=== PATIENT | female | born 1995 | race African-American/Black ===

== ENCOUNTER 2017-08-05 08:51 | Emergency (ER) | payer SELFPAY ==
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
[2017-08-05 11:13] VITALS: BP 129/65
[2017-08-05 11:58] LABS: CHLAM PCR NOT DETECTED (NOT DETECT)
== END 2017-08-05 11:13 | disposition home or self-care (01) ==
LOC: ER 08:51
DX: N76.0 Acute vaginitis (principal); B96.89 Other specified bacterial agents as the cause of diseases classified elsewhere; J06.9 Acute upper respiratory infection, unspecified; B97.89 Other viral agents as the cause of diseases classified elsewhere; J02.9 Acute pharyngitis, unspecified; R51 Headache; R11.0 Nausea; R05 Cough
CPT/HCPCS: 87070; 87210; 87491; 87591; 87880; 99283

== ENCOUNTER 2017-08-11 23:05 | Emergency (ER) | payer SELFPAY ==
[2017-08-12] MEDS ORDERED: ACETAMINOPHEN 325 MG TABLET PO ONE (00:47)
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
[2017-08-12 01:44] VITALS: BP 121/64
== END 2017-08-12 01:43 | disposition home or self-care (01) ==
LOC: ER 23:05
DX: S00.83XA Contusion of other part of head, initial encounter (principal); Y04.2XXA Assault by strike against or bumped into by another person, initial encounter
CPT/HCPCS: 81025; 99284

== ENCOUNTER 2017-10-12 14:55 | Emergency (ER) | payer SELFPAY ==
--- NOTE | 2017-10-12 16:16 | ER Document Report ---
ED Oral Problem - General Chief Complaint: Toothache Stated Complaint: TOOTHACHE Time Seen by Provider: 10/12/17 16:05 Mode of Arrival: Ambulatory Information source: Patient TRAVEL OUTSIDE OF THE [place] IN LAST 30 DAYS: No - HPI Patient complains to provider of: Toothache Onset: Other - pt. states she has had pain in L upper molar for the past several days. - Related Data Allergies/Adverse Reactions: No Known Allergies Allergy (Verified 10/12/17 15:35) Past Medical History - Social History Smoking Status: Never Smoker Cigarette use (# per day): No Chew tobacco use (# tins/day): No Smoking Education Provided: No Family History: Reviewed & Not Pertinent Neurological Medical History: Reports: Hx Migraine Renal/ Medical History: Denies: Hx Peritoneal Dialysis Psychiatric Medical History: Reports: Hx Bipolar Disorder, Hx Depression - Immunizations Immunizations up to date: Yes Hx Diphtheria, Pertussis, Tetanus Vaccination: No Review of Systems - Review of Systems Constitutional: No symptoms reported EENT: See HPI, Dental problem Cardiovascular: No symptoms reported Respiratory: No symptoms reported Gastrointestinal: No symptoms reported Musculoskeletal: No symptoms reported Skin: No symptoms reported -: Yes All other systems reviewed and negative Physical Exam - Vital signs Vitals: Temp Pulse Resp BP Pulse Ox 99.4 F 91 16 131/85 H 100 10/12/17 15:33 10/12/17 15:33 10/12/17 15:33 10/12/17 15:33 10/12/17 15:33 - General General appearance: Appears well In distress: None - HEENT Mouth/Lips: Other - there is a large cavity of the L upper molar which is tender to percussion Course - Vital Signs Vital signs: Temp Pulse Resp BP Pulse Ox 99.4 F 91 16 131/85 H 100 10/12/17 15:33 10/12/17 15:33 10/12/17 15:33 10/12/17 15:33 10/12/17 15:33 Discharge - Discharge Clinical Impression: Dentalgia Condition: Stable Instructions: [facility], Penicillin V K ([facility]), Toothache ([facility]) Additional Instructions: rest, take meds as prescribed, return if worse Prescriptions: Amoxicillin Trihydrate [Amoxil 500 mg Capsule] 500 mg PO TID #30 capsule Etodolac [Lodine] 400 mg PO BID #20 tablet Referrals: VERONICA MORTON MD [ACTIVE STAFF] - Follow up as needed
[2017-10-12 18:12] VITALS: BP 119/72
== END 2017-10-12 17:30 | disposition home or self-care (01) ==
LOC: ER 14:55
DX: K08.89 Other specified disorders of teeth and supporting structures (principal)
CPT/HCPCS: 99282

== ENCOUNTER → 2017-11-03 | Outpatient (CLI) | payer SELFPAY ==
--- NOTE | 2017-11-03 15:26 | RADIOLOGY REPORT (SQ) ---
EXAM DESCRIPTION: U/S [id number] TRNABD 1GES W/ODOP COMPLETED DATE/TIME: 11/03/2017 3:14 pm REASON FOR STUDY: ENCOUNTER FOR SUPERVISION OF NORMAL FIRST , FIRST TRIMESTER Z34.01 ENCNT R FOR SUPRVSN OF NORMAL FIRST PREG, FIRST TRIMES COMPARISON: None. TECHNIQUE: Transabdominal static and realtime grayscale images acquired of the pelvis. Additional se lected spectral and color Doppler images recorded. All images stored on PACs. bHCG: Not applicable. LIMITATIONS: None. FINDINGS: FETUS: Living intrauterine . EGA: 8 week 4 day. OREN: 06/11/2018. FHR: 171 beats per minute. SUBCHORIONIC BLEED: No. SIZE OF BLEED: Not applicable. UTERUS: No masses. No anomalies. RIGHT ADNEXA: Normal ovary with normal vascular flow. No adnexal free fluid. No adnexal masses. LEFT ADNEXA: Ovary not identified. No adnexal free fluid. No adnexal masses. FREE FLUID: None. OTHER: No other significant finding. IMPRESSION: LIVING INTRAUTERINE . EGA 8 WEEK 4 DAY. Trimester of : First - 0 to 13 weeks. TECHNICAL DOCUMENTATION: JOB ID: [id number] [employer]- All Rights Reserved
== END ==
LOC: RAD 14:35
PROVIDERS: ATTEND Nurse Practitioner Women's Health
DX: Z34.01 Encounter for supervision of normal first pregnancy, first trimester (principal)
CPT/HCPCS: 76801

== ENCOUNTER 2017-11-08 19:59 | Emergency (ER) | payer MEDICAID ==
--- NOTE | 2017-11-08 21:17 | ER Document Report ---
ED General - General Chief Complaint: Headache <24 hrs old Stated Complaint: DIZZINESS/NAUSEA Time Seen by Provider: 11/08/17 20:57 Mode of Arrival: Ambulatory Information source: Patient Notes: 22 years old female presents today with headaches generalized body aches nausea with the 9 week . No fever chills or other constitutional symptoms. Denies any nausea vomiting diarrhea. Dysuria frequency urgency. TRAVEL OUTSIDE OF THE [place] IN LAST 30 DAYS: No - Related Data Allergies/Adverse Reactions: No Known Allergies Allergy (Verified 11/08/17 20:06) Past Medical History - Social History Smoking Status: Smoker,Current Status Unk Family History: Reviewed & Not Pertinent Neurological Medical History: Reports: Hx Migraine Renal/ Medical History: Denies: Hx Peritoneal Dialysis Psychiatric Medical History: Reports: Hx Bipolar Disorder, Hx Depression - Immunizations Immunizations up to date: Yes Hx Diphtheria, Pertussis, Tetanus Vaccination: No Review of Systems - Review of Systems Notes: REVIEW OF SYSTEMS: CONSTITUTIONAL : Denies fever, chills, or sweats. Denies recent illness. EENT: Denies eye, ear, throat, or mouth pain or symptoms. Denies nasal or sinus congestion or discharge. Denies throat, tongue, or mouth swelling or difficulty swallowing. CARDIOVASCULAR: Denies chest pain. Denies palpitations or racing or irregular heart beat. Denies ankle edema. RESPIRATORY: Denies cough, cold, or chest congestion. Denies shortness of breath, difficulty breathing, or wheezing. GASTROINTESTINAL: Denies abdominal pain or distention. Denies nausea, vomiting , or diarrhea. Denies blood in vomitus, stools, or per rectum. Denies black, tarry stools. Denies constipation. GENITOURINARY: Denies difficulty urinating, painful urination, burning, frequency, blood in urine, or discharge. FEMALE GENITOURINARY: Denies vaginal bleeding, heavy or abnormal periods, irregular periods. Denies vaginal discharge or odor. MUSCULOSKELETAL: Denies back or neck pain or stiffness. Denies joint pain or swelling. SKIN: Denies rash, lesions or sores. HEMATOLOGIC : Denies easy bruising or bleeding. LYMPHATIC: Denies swollen, enlarged glands. NEUROLOGICAL: Denies confusion or altered mental status. Denies passing out or loss of consciousness. Denies dizziness or lightheadedness. Denies headache. Denies weakness or paralysis or loss of use of either side. Denies problems with gait or speech. Denies sensory loss, numbness, or tingling. Denies seizures. PSYCHIATRIC: Denies anxiety or stress. Denies depression, suicidal ideation, or homicidal ideation. ALL OTHER SYSTEMS REVIEWED AND NEGATIVE. PHYSICAL EXAMINATION: GENERAL: Well-appearing, well-nourished and in no acute distress. HEAD: Atraumatic, normocephalic. EYES: Pupils equal round and reactive to light, extraocular movements intact, conjunctiva are normal. ENT: Nares patent, oropharynx clear without exudates. Moist mucous membranes. NECK: Normal range of motion, supple without lymphadenopathy LUNGS: Breath sounds clear to auscultation bilaterally and equal. No wheezes rales or rhonchi. HEART: Regular rate and rhythm without murmurs ABDOMEN: Soft, nontender, nondistended abdomen. No guarding, no rebound. No masses appreciated. Female : deferred Musculoskeletal: Normal range of motion, no pitting or edema. No cyanosis. NEUROLOGICAL: Cranial nerves grossly intact. Normal speech, normal gait. Normal sensory, motor exams PSYCH: Normal mood, normal affect. SKIN: Warm, Dry, normal turgor, no rashes or lesions noted. Dictation was performed using [employer] voice recognition software Physical Exam - Vital signs Vitals: Temp Pulse Resp BP Pulse Ox 98.9 F 75 18 126/80 H 100 11/08/17 22:29 11/08/17 22:29 11/08/17 22:29 11/08/17 22:29 11/08/17 22:29 Course - Re-evaluation Re-evalutation: 11/08/17 22:20 Patient was reevaluated, still having a headache, since he is prepped and we are not allowed to have anything more than Tylenol at this point. She has been asked to drink lots of fluids and follow-up with OB - Vital Signs Vital signs: Temp Pulse Resp BP Pulse Ox 98.9 F 75 18 126/80 H 100 11/08/17 22:29 11/08/17 22:29 11/08/17 22:29 11/08/17 22:29 11/08/17 22:29 - Laboratory Result Diagrams: 11/08/17 21:25 Discharge - Discharge Clinical Impression: Headache Qualifiers: Headache type: tension-type Headache chronicity pattern: episodic headache Intractability: not intractable Qualified Code(s): G44.219 - Episodic tension- type headache, not intractable Qualifiers: Weeks of gestation: 9 weeks Qualified Code(s): Z3A.09 - 9 weeks gestation of Condition: Fair Disposition: HOME, SELF-CARE Instructions: Headache ([facility]), ([facility]), Viral Syndrome ([facility])
[2017-11-08 21:38] LABS: ABSOLUTE EOSINOPHILS # (AUTO) 0.1 10^3/uL (0.0-0.6); ABSOLUTE LYMPHOCYTES (AUTO) 2.6 10^3/uL (0.5-4.7); ABSOLUTE MONOCYTES (AUTO) 0.4 10^3/uL (0.1-1.4); ABSOLUTE NEUT (AUTO) 5.7 10^3/uL (1.7-8.2); BASOPHILS % (AUTO) 0.5 % (0-2); EOSINOPHILS % (AUTO) 1.2 % (0-6); HEMATOCRIT 37.2 % (36.0-47.0); HEMOGLOBIN 12.7 g/dL (12.0-15.5); HGB HCT DIFFERENCE 0.9; LYMPHOCYTES % (AUTO) 29.5 % (13-45); MEAN CORPUSCULAR HEMOGLOBIN 28.1 pg (27.0-33.4); MEAN CORPUSCULAR HGB CONC 34.1 g/dL (32.0-36.0); MEAN CORPUSCULAR VOLUME 82 fl (80-97); MONOCYTES % (AUTO) 4.7 % (3-13); RED BLOOD COUNT 4.52 10^6/uL (3.72-5.28); RED CELL DISTRIBUTION WIDTH 13.7 % (11.5-14.0); SEGMENTED NEUTROPHILS % (AUTO) 64.1 % (42-78); WHITE BLOOD COUNT 8.9 10^3/uL (4.0-10.5)
[2017-11-08 22:33] VITALS: BP 126/80
== END 2017-11-08 22:30 | disposition home or self-care (01) ==
LOC: ER 19:59
DX: G44.219 Episodic tension-type headache, not intractable (principal); O26.891 Other specified pregnancy related conditions, first trimester; R11.0 Nausea; R42 Dizziness and giddiness; M79.1 Myalgia; Z3A.09 9 weeks gestation of pregnancy; F17.200 Nicotine dependence, unspecified, uncomplicated
CPT/HCPCS: 36415; 85025; 87804; 99284

== ENCOUNTER 2017-12-02 11:27 | Emergency (ER) | payer MEDICAID ==
[2017-12-02] MEDS ORDERED: ACETAMINOPHEN 325 MG TABLET PO ONE (13:06)
--- NOTE | 2017-12-02 13:07 | ER Document Report ---
ED General - General Chief Complaint: Nausea/Vomiting Stated Complaint: NAUSEA SORE THROAT BODY ACHES Time Seen by Provider: 12/02/17 12:23 Notes: Patient is a 22-year-old female who is 12.5 week female who presents emergency department with chief complaint of right-sided headache with cough and sore throat for the past 2 days. Patient states that she has been taking Tylenol and nothing else for her symptoms. She denies any fevers or chills admits to nausea without vomiting denies any dysuria, pyuria or urinary frequency. Following with the health department for [facility] care, has had an ultrasound confirming her . Denies any pelvic pain, back pain, edema. TRAVEL OUTSIDE OF THE [place] IN LAST 30 DAYS: No - Related Data Allergies/Adverse Reactions: No Known Allergies Allergy (Verified 12/02/17 12:49) Past Medical History - Social History Smoking Status: Never Smoker Chew tobacco use (# tins/day): No Frequency of alcohol use: None Drug Abuse: None Family History: Reviewed & Not Pertinent Patient has suicidal ideation: No Patient has homicidal ideation: No Neurological Medical History: Reports: Hx Migraine Renal/ Medical History: Denies: Hx Peritoneal Dialysis Psychiatric Medical History: Reports: Hx Bipolar Disorder, Hx Depression - Immunizations Immunizations up to date: Yes Hx Diphtheria, Pertussis, Tetanus Vaccination: No Review of Systems - Review of Systems Constitutional: No symptoms reported EENT: See HPI Cardiovascular: No symptoms reported Respiratory: See HPI Gastrointestinal: See HPI Musculoskeletal: No symptoms reported -: Yes All other systems reviewed and negative Physical Exam - Vital signs Vitals: Temp Pulse Resp BP Pulse Ox 99.5 F 88 16 133/81 H 100 12/02/17 11:31 12/02/17 11:31 12/02/17 11:31 12/02/17 11:31 12/02/17 11:31 - Notes Notes: PHYSICAL EXAM GENERAL: Alert, interacts well. HEENT: NCAT, pale conjunctiva, extraocular movements intact, pupils PERRL. external ear normal, no evidence of external auditory canal tenderness, blood/ drainage, cerumen impaction, TM intact without evidence of effusion, bulging, injection, MMM, Uvula midline. Airway patent. No evidence of tonsillar enlargement, peritonsillar abscess, retropharyngeal abscess. LUNGS: Clear to auscultation bilaterally, no wheezes, rales, or rhonchi. No respiratory distress. HEART: Regular rate and rhythm. No murmurs, gallops, or rubs. ABDOMEN: Soft, nondistended, nontender. No guarding, rebound, or rigidity.. Bowel sounds present in all 4 quadrants. EXTREMITIES: Moves all 4 extremities spontaneously. No edema, radial and dorsalis pedis pulses 2/4 bilaterally. No cyanosis. NEUROLOGICAL: Alert and oriented x4. Normal speech. PSYCH: Normal affect, normal mood. SKIN: Warm, dry, normal turgor. No rashes or lesions noted. Course - Re-evaluation Re-evalutation: 12/02/17 14:18 22-year-old female is hemodynamically stable, no acute distress afebrile. Presentation is most consistent with a viral upper respiratory infection. Patient is overall well appearance, vitals within normal limits, well-hydrated. Urinalysis without evidence of dehydration, UTI. Patient denies any headache, neck pain, and has no evidence of meningismus on examination. Lungs are clear bilaterally. No evidence of respiratory distress. Based on clinical exam and history, I do not suspect an acute pneumonia, meningitis, strep pharyngitis, or an acute encephalitis. No laboratory or imaging testing is indicated at this time. Will discharge patient with return precautions and followup recommendations. They are in agreement this plan have verbalized understanding return precautions. - Vital Signs Vital signs: Temp Pulse Resp BP Pulse Ox 99.5 F 88 16 133/81 H 100 12/02/17 11:31 12/02/17 11:31 12/02/17 11:31 12/02/17 11:31 12/02/17 11:31 - Laboratory Laboratory results interpreted by me: 12/02/17 12:56 Urine Urobilinogen 2.0 H Discharge - Discharge Clinical Impression: URI (upper respiratory infection) Qualifiers: URI type: unspecified viral URI Qualified Code(s): J06.9 - Acute upper respiratory infection, unspecified Condition: Good Disposition: HOME, SELF-CARE Additional Instructions: Your presentation today is consistent with an upper respiratory infection. Please see the attached list for medications that are safe to take in . Please follow-up with the health department as scheduled for your routine [employer] care. Please be sure to take your prenatals as directed. Prescriptions: Pnv No.121/Iron/Folic Acid [ Multivitamin Tablet] 1 each PO DAILY #30 tablet [facility]NO [facility]AL MD] - Follow up as needed
[2017-12-02 13:28] LABS: APPEARANCE,URINE SLIGHTLY-CLOUDY; BILIRUBIN,URINE NEGATIVE (NEGATIVE); COLOR,URINE YELLOW; GLUCOSE, URINE NEGATIVE (NEGATIVE); KETONES,URINE NEGATIVE (NEGATIVE); LEUKOCYTE ESTERASE,URINE NEGATIVE (NEGATIVE); NITRITE,URINE NEGATIVE (NEGATIVE); PROTEIN,URINE NEGATIVE (NEGATIVE); URINE SPECIFIC GRAVITY 1.026
[2017-12-02 13:40] LABS: A TYPE INFLUENZA AG NEGATIVE (NEGATIVE); B INFLUENZA AG NEGATIVE (NEGATIVE)
[2017-12-02 14:41] VITALS: BP 121/70
== END 2017-12-02 14:40 | disposition home or self-care (01) ==
LOC: ER 11:27
DX: O99.511 Diseases of the respiratory system complicating pregnancy, first trimester (principal); J06.9 Acute upper respiratory infection, unspecified; B97.89 Other viral agents as the cause of diseases classified elsewhere; J02.9 Acute pharyngitis, unspecified; O26.891 Other specified pregnancy related conditions, first trimester; R51 Headache; R05 Cough; R11.0 Nausea; Z3A.12 12 weeks gestation of pregnancy
CPT/HCPCS: 99283; 81001; 87804; J3490

== ENCOUNTER 2018-06-09 11:52 | Outpatient (CLI) | payer MEDICAID ==
--- NOTE | 2018-06-09 12:41 | Non Stress Test Report ---
Non Stress Test Datetime Report Generated by CPN: 06/09/2018 12:41 INDICATION Indication for Study: Ordered by Provider; Other Indication for Study (NST) Other: repeat NST sent from office MONITORING Monitor Explained: Monitor Explained; Test Explained; Patient Verbalized Understanding Time on Monitor: 06/09/2018 12:04 Time off Monitor: 06/09/2018 12:38 NST Duration: 34 NST INTERVENTIONS NST Interventions: PO Hydration; Reposition Patient Physician Notified NST: C Alvarado CNM BABY A: [id number] BABY A Movement : Present Contraction Frequency : 0 FHR Baseline : 130 Accelerations : 15X15 Decelerations : None Variability : Moderate 6-25bpm NST Review: Meets Criteria for Reactive NST NST Review and Verified By : D Bellavance RN NST Results: Reactive NST REPORT Report Trigger: Send Report
== END 2018-06-09 12:53 | disposition home or self-care (01) ==
LOC: LC 11:52
PROVIDERS: ATTEND Obstetrics & Gynecology Gynecology
PROC: 4A1HXCZ Monitoring of Products of Conception, Cardiac Rate, External Approach (ICD-10-PCS; principal; 2018-06-09)
DX: O36.8130 Decreased fetal movements, third trimester, not applicable or unspecified (principal); O48.0 Post-term pregnancy; Z3A.40 40 weeks gestation of pregnancy
CPT/HCPCS: 59025

== ENCOUNTER 2018-06-13 14:26 | Inpatient (IN) | payer MEDICAID ==
[2018-06-13 15:16] LABS: APPEARANCE,URINE SLIGHTLY-CLOUDY; BILIRUBIN,URINE NEGATIVE (NEGATIVE); COLOR,URINE YELLOW; GLUCOSE, URINE NEGATIVE (NEGATIVE); KETONES,URINE TRACE mg/dL (NEGATIVE); LEUKOCYTE ESTERASE,URINE SMALL (NEGATIVE); NITRITE,URINE NEGATIVE (NEGATIVE); PROTEIN,URINE NEGATIVE (NEGATIVE); URINE SPECIFIC GRAVITY 1.021
[2018-06-13 15:34] LABS: URINE AMPHETAMINES SCREEN NEGATIVE; URINE BARBITURATES SCREEN NEGATIVE; URINE BENZODIAZEPINES SCREEN NEGATIVE; URINE COCAINE SCREEN NEGATIVE; URINE MARIJUANA (THC) SCREEN NEGATIVE; URINE METHADONE SCREEN NEGATIVE; URINE PHENCYCLIDINE SCREEN NEGATIVE
[2018-06-13] MEDS ORDERED: RINGERS SOLUTION,LACTATED 300 ML IV ONE (15:36)
[2018-06-13] MEDS ORDERED: DINOPROSTONE 10 MG VAGINAL INSERT.SR PV PRN (15:36)
[2018-06-13 16:08] LABS: ABSOLUTE BASOPHILS # (AUTO) 0.1 10^3/uL (0.0-0.2); ABSOLUTE LYMPHOCYTES (AUTO) 1.8 10^3/uL (0.5-4.7); ABSOLUTE MONOCYTES (AUTO) 0.4 10^3/uL (0.1-1.4); ABSOLUTE NEUT (AUTO) 4.9 10^3/uL (1.7-8.2); BASOPHILS % (AUTO) 0.8 % (0-2); EOSINOPHILS % (AUTO) 0.3 % (0-6); HEMOGLOBIN 12.1 g/dL (12.0-15.5); LYMPHOCYTES % (AUTO) 25.4 % (13-45); MEAN CORPUSCULAR HEMOGLOBIN 27.8 pg (27.0-33.4); MEAN CORPUSCULAR HGB CONC 33.6 g/dL (32.0-36.0); MEAN CORPUSCULAR VOLUME 83 fl (80-97); MONOCYTES % (AUTO) 5.5 % (3-13); PLATELET COUNT 172 10^3/uL (150-450); RED BLOOD COUNT 4.35 10^6/uL (3.72-5.28); RED CELL DISTRIBUTION WIDTH 15.6 % (11.5-14.0); TOTAL CELLS COUNTED % (AUTO) 100 %; WHITE BLOOD COUNT 7.1 10^3/uL (4.0-10.5)
[2018-06-13] MEDS: RINGERS SOLUTION,LACTATED 1,000 ML IV PRN ×2 (16:15→18:43)
--- NOTE | 2018-06-13 18:10 | Admission Physical ---
Datetime Report Generated by CPN: 06/13/2018 18:10 CURRENT ADMISSION Chief Complaint: Scheduled Induction of Labor Indication for Induction: Post Dates Admit Impression : Postterm, Intrauterine ; No Active Labor Admit Plan: Admit to Unit; Initiate Labor Induction Protocol ALLERGIES Medication Allergies: No Medication Allergies: No Known Allergies (06/09/2018) Latex: No Latex Allergies Food Allergies: None Environmental Allergies: None OBSTETRICAL HISTORY EDC: 06/07/2018 00:00 : 1 Para: 0 Term: 0 : 0 SAB: 0 IAB: 0 Ectopic: 0 Livin Cesareans: 0 VBACs: 0 Multiple Births: 0 Gestational Diabetes: No Rh Sensitization: No Incompetent Cervix: No MAHNAZ: No Infertility: No ART Treatment: No Uterine Anomaly: No IUGR: No Hx Previous C/S: No Macrosomia: No Hx Loss/Stillborn: No PIH: No Hx : No Placenta Previa/Abruption: No Depression/PP Depression: No PTL/PROM: No Post Hemorrhage: No Obstetrical History Comments: G1 - Current SEE RECORDS Alcohol: No Marijuana : No Cocaine: No Other Illicit Drugs: No Cigarettes: Never Smoker. [id number] MEDICAL HISTORY Diabetes: No Blood Transfusion: No Pulmonary Disease (Asthma, TB): No Breast Disease: No Hypertension: No Hosiery Operator Surgery: No Heart Disease: No Hosp/Surgery: No Autoimmune Disorder: No Anesthetic Complications: No Kidney Disease: No Abnormal Pap Smear: No Neuro/Epilepsy: No Psychiatric Disorders: No Other Medical Diseases: No Hepatitis/Liver Disease: No Significant Family History: No Varicosities/Phlebitis: No Trauma/Violence : No Thyroid Dysfunction: No INFECTIOUS HISTORY Gonorrhea: No Genital Herpes: No Chlamydia: Yes Tuberculosis: No Syphilis: No Hepatitis: No HIV/AIDS Exposure: No Rash or Viral Illness: No HPV: Yes Infectious History Comments: Chlamydia 2017 treated, HPV 2017 PHYSICAL EXAM General: Normal HEENT: Normal Neurologic: Normal Thyroid: Normal Heart: Normal Lungs: Normal Breast: Deferred Back: Normal Abdomen: Normal Genitourinary Exam: Normal Extremities: Normal DTRs: Normal Pelvic Type: Adequate Vital Signs: Reviewed VAGINAL EXAM Dilatation: 1 Effacement: 50 Station: -2 MEMBRANES Pooling: Negative Membranes: Intact FETUS A EGA: 40.6 Monitoring: External US FHR- Baseline: 140 Variability: Moderate 6-25bpm Accelerations: 15X15 Decelerations: None FHR Category: Category I Presentation: Vertex Admit Comment: efw 7-8 lbs PLANS FOR LABOR AND DELIVERY Labor and Delivery: None Pain Management: Epidural Feeding Preference: Formula Benefit of Breast Feed Discussed: Yes Circumcision: N/A INFORMED CONSENT Signature: with User ID: [email or web address]
[2018-06-13] MEDS ORDERED: DINOPROSTONE 10 MG VAGINAL INSERT.SR ONE (18:35)
[2018-06-13] MEDS ORDERED: ZOLPIDEM TARTRATE 5 MG TABLET ONE (22:08)
[2018-06-13] MEDS ORDERED: ZOLPIDEM TARTRATE 5 MG TABLET PO ONE (22:35)
[2018-06-14] MEDS ORDERED: ACETAMINOPHEN 325 MG TABLET ONE (00:53)
[2018-06-14] MEDS ORDERED: ACETAMINOPHEN 325 MG TABLET PO ONE (00:55)
[2018-06-14] MEDS ORDERED: NALBUPHINE HCL INJ 10 MG/1 ML AMPULE INJ ONE (02:35)
[2018-06-14] MEDS ORDERED: PROMETHAZINE HCL INJ 25 MG/1 ML VIAL IV ONE (02:35)
[2018-06-14] MEDS ORDERED: PROMETHAZINE HCL INJ 25 MG/1 ML VIAL ONE (02:38)
[2018-06-14] MEDS ORDERED: NALBUPHINE HCL INJ 10 MG/1 ML AMPULE ONE (02:39)
[2018-06-14] MEDS: RINGERS SOLUTION,LACTATED 1,000 ML IV PRN ×2 (02:44→05:55)
[2018-06-14] MEDS ORDERED: FENTANYL CITRATE INJ/PF 100 MCG/2 ML AMPUL ONE (04:05)
[2018-06-14] MEDS ORDERED: FENTANYL/BUPIVACAINE/NS/PF 300 MCG/150 ML RTUINJ EPI ONE (04:06)
[2018-06-14] MEDS ORDERED: BUPIVACAINE HCL 0.25 % INJ/PF (2.5 MG/1 ML) 30 ML VIAL ONE (04:06)
[2018-06-14] MEDS ORDERED: PHENYLEPHRINE HCL INJ/PF 10 MG/1 ML SDV ONE (04:06)
[2018-06-14] MEDS ORDERED: EPHEDRINE SULFATE INJ 50 MG/1 ML AMPULE ONE (04:06)
[2018-06-14] MEDS ORDERED: OXYTOCIN/NORMAL SALINE 20 UNIT/1,000 ML RTUINJ ONE (04:07)
[2018-06-14] MEDS ORDERED: LIDOCAINE 1% INJ-PF (10 MG/ML) 30 ML SDV ONE (04:07)
[2018-06-14] MEDS ORDERED: MISOPROSTOL 0.2 MG TABLET ONE (04:07)
[2018-06-14] MEDS ORDERED: OXYTOCIN/NORMAL SALINE 20 UNIT/1,000 ML RTUINJ IV PRN (06:53)
[2018-06-14] MEDS ORDERED: ACETAMINOPHEN WITH CODEINE #3 TABLET PO PRN ×2 (06:53)
[2018-06-14] MEDS ORDERED: MAGNESIUM HYDROXIDE SUSP 30 ML UDCUP PO PRN (06:53)
[2018-06-14] MEDS ORDERED: NA PHOS,M-B/NA PHOS,DI-BA (ADULT) 133 ML ENEMA PR PRN (06:53)
[2018-06-14] MEDS ORDERED: ZOLPIDEM TARTRATE 5 MG TABLET PO PRN (06:53)
[2018-06-14] MEDS ORDERED: GLYCERIN/WITCH HAZEL LEAF 1 EACH MED..PAD TP PRN (06:53)
[2018-06-14] MEDS ORDERED: MEASLES,MUMPS&RUBELLA VACC/PF 0.5 ML VIAL SUBCUT PRN (06:53)
[2018-06-14] MEDS ORDERED: PSEUDOEPHEDRINE HCL 30 MG TABLET PO PRN (06:53)
[2018-06-14] MEDS ORDERED: DIPH/PERTUSS(ACELL)/TETANUS VAC/PF 0.5 ML SYR (>=10YO) IM PRN (06:53)
[2018-06-14] MEDS ORDERED: DIBUCAINE 1% OINTMENT 28 GM TP PRN (06:53)
[2018-06-14] MEDS ORDERED: PROMETHAZINE HCL 25 MG SUPP.RECT PR PRN (06:53)
[2018-06-14] MEDS ORDERED: PROMETHAZINE HCL 25 MG TABLET PO PRN (06:53)
[2018-06-14] MEDS ORDERED: ACETAMINOPHEN 650 MG SUPP.RECT PR PRN (06:53)
[2018-06-14] MEDS ORDERED: PROMETHAZINE HCL INJ 25 MG/1 ML VIAL IV PRN (06:53)
[2018-06-14] MEDS ORDERED: BENZOCAINE/MENTHOL AEROSOL SPRAY 56 ML TOP PRN (06:53)
--- NOTE | 2018-06-14 07:13 | Warning Signs in Babies ---
VOD Warning Signs Datetime Report Generated by [facility]: 06/14/2018 07:12 VOD#608 -Warning Signs in Babies: Needs to be viewed. (06/13/2018 14:36:Anita Marvin RN)
--- NOTE | 2018-06-14 08:21 | Warning Signs in Babies ---
VOD Warning Signs Datetime Report Generated by [facility]: 06/14/2018 08:21 VOD#608 -Warning Signs in Babies: Viewed with Parent(s)/Family (06/13/2018 14:36:NUBIA Smart)
[2018-06-14] MEDS ORDERED: BENZOCAINE/MENTHOL AEROSOL SPRAY 56 ML ONE (08:54)
--- NOTE | 2018-06-14 10:30 | Delivery Summary ---
Del Sum A-C Datetime Report Generated by CPN: 06/14/2018 10:29 DELIVERY PERSONNEL DELIVERY PERSONNEL: [id number] Delivery Doctor:: Oziel Quiros MD Labor and Delivery Nurse:: Anita Marvin RNdaycare director Nurse:: Ginny Borrero RN Nursery Nurse:: Jo Meza RN Real Estate Instructor/PAINTER BOTTOM: Maricarmen Anderson, ENGINEERING EXECUTIVE MATERNAL INFORMATION Delivery Anesthesia: Epidural Medications After Delivery: Pitocin Bolus-Please Comment; Pitocin Drip 20 Units/1000ml NSS Meds After Delivery Comment: Ns with pitocin 20 units/liter ivf bolus Estimated Blood Loss (ml): 250 Maternal Complications: Other Complication Details: limited pnc LABOR SUMMARY EDC: 06/07/2018 00:00 No. Babies in Womb: 1 Attempted: No Labor Anesthesia: Epidural LABOR INFORMATION Reason for Induction: Post Dates Onset of Labor: 06/14/2018 02:24 Complete Dilatation: 06/14/2018 05:03 Cervical Ripening Agents: Cervidil Other Ripening Agents: cervidil removed due to dilation and active labor Oxytocin: N/A Group B Beta Strep: negative Steroids Given: None Reason Steroids Not Administered: Not Applicable MEMBRANES Membranes Rupture Method: Spontaneous Rupture of Membranes: 06/14/2018 03:36 Length of Rupture (hr): 2.95 Amniotic Fluid Color: Clear Amniotic Fluid Amount: Small Amniotic Fluid Odor: Normal STAGES OF LABOR Stage 1 hr: 2 Stage 1 min: 39 Stage 2 hr: 1 Stage 2 min: 30 Stage 3 hr: 0 Stage 3 min: 2 Total Time in Labor hr: 4 Total Time in Labor min: 11 VAGINAL DELIVERY Episiotomy: None Laceration #1: Perineal Laceration Extension #1: Second Degree Laceration #2: Vaginal Laceration Extension #2: N/A Laceration #3: None Laceration Repair: Yes Laceration Repair Note: lacerations repaired in usual fashion with 3-0 chromic Sponge Count Correct: Yes Sharps Count Correct: Yes CSECTION DELIVERY Primary Indication: N/A Secondary Indication: N/A CSection Incidence: N/A Labor: N/A Elective: N/A CSection Incision: N/A BABY A INFORMATION Delivery Date/Time: 06/14/2018 06:33 Method of Delivery: Vaginal Born in Route : No : N/A Forceps: N/A Vacuum Extraction: N/A Shoulder Dystocia : No PRESENTATION/POSITION BABY A Presentation: Cephalic Cephalic Presentation: Vertex Vertex Position: Left Occipital Anterior Breech Presentation: N/A PLACENTA INFORMATION BABY A Placenta Delivery Time : 06/14/2018 06:35 Placenta Method of Delivery: Spontaneous Placenta Status: Delivered SCORES BABY A Heart Rate 1 min: >100 bpm Resp Effort 1 min: Good Cry Reflex Irritability 1 min: Grimace Muscle Tone 1 min: Active Motion Color 1 min: Blue/Pale Resuscitation Effort 1 min: Tactile Stimulation SCORE 1 MIN: 7 Heart Rate 5 min: >100 bpm Resp Effort 5 min: Good Cry Reflex Irritability 5 min: Cough or Sneeze or Pulls Away Muscle Tone 5 min: Active Motion Color 5 min: Blue/Pale Resuscitation Effort 5 min: Tactile Stimulation SCORE 5 MIN: 8 INFORMATION BABY A Gestational Age at Delivery: 41.0 Gestational Status: Late Term- 41- 41.6 Weeks Outcome : Liveborn Infant Condition : Stable Sex: Female IDENTIFICATION BABY A Infant Verification Date/Time: 06/14/2018 06:41 ID Band Number: [id number] Mother's Name Verified: Yes Infant RN Verifying Infant: rn young Additional Verifying Personnel: [facility] WEIGHT/LENGTH BABY A Birthweight (gm): 3040 Infant Weight (lb): 6 Weight (oz): 11 Length (in): 20.25 Length (cm): 51.44 CORD INFORMATION BABY A No. Cord Vessels: 3 Nuchal Cord : N/A Cord Blood Taken: Yes-For Eval (Mom's Blood Type - or O+) Suction: Mouth ASSESSMENT BABY A Complications: Multiple Variable Decels Physical Findings at Delivery: Within Normal Limits Infant Respirations: Grunting Skin to Skin: Yes Skin to Skin Time (min): 30 Home Teaching Grades 9 Thru 12 Teacher/ALS Called : No Care By: rn meza Transferred To: Remains with Mother BABY B INFORMATION : N/A SIGNATURES Signature: with User ID: [email or web address]
[2018-06-14] MEDS: FAMOTIDINE 20 MG TABLET PO SCH ×2 (10:48→22:19)
[2018-06-14] MEDS: PRENATAL VITAMIN W DHA CAPSULE PO SCH (10:49)
[2018-06-14] MEDS: SENNOSIDES/DOCUSATE 8.6-50 MG 1 EACH TABLET PO SCH (10:49)
[2018-06-14] MEDS: FERROUS SULFATE 325 MG TABLET PO SCH ×2 (10:49→18:09)
[2018-06-14] MEDS: DOCUSATE SODIUM 100 MG CAPSULE PO SCH ×2 (10:49→18:09)
[2018-06-14] MEDS: IBUPROFEN 800 MG TABLET PO SCH ×2 (14:50→22:19)
--- NOTE | 2018-06-14 20:40 | PDOC PROGRESS REPORT ---
Subjective-OB Progress Note for:: 06/14/18 Subjective: pt c/o 5/5 pain and reports that motrin and T3 not working, after 2nd degree vaginal laceration with uncomplicated today Physical Exam (OB) Vital Signs: Temp Pulse Resp BP Pulse Ox 99.1 F 99 18 121/66 99 06/14/18 09:46 06/14/18 09:46 06/14/18 09:46 06/14/18 09:46 06/14/18 09:46 Intake & Output 06/13/18 06/14/18 06/15/18 06:59 06:59 06:59 Intake Total 3000 427 Balance 3000 427 Weight 112.4 kg - General General Appearance: Appears well, Alert, Other - eating dinner sitting very comfortable on the side of the bed In distress: None - Lochia Lochia Amount: Small 10-25 ml Lochia Color: Rubra/Red - Abdomen Description: Tender, Soft Hernia Present: No Fundal Description: Firm Fundal Height: u/u - u/2 Objective-Diagnostic Laboratory: 06/13/18 15:55 Assessment and Plan(PN) - Assessment and Plan (1) Obstetrical laceration, second degree Is this a current diagnosis for this admission?: Yes Plan: Called by RN to evaluate patient for pain. Upon entering the room pt is not in distress at all and is sitting on the edge of the bed comfortably eating her dinner. her mother and another family member at also at the bedside. She had been refusing pain meds during the day so I inquired re: this. She reported that the motrin caused her itching and the T3 did not work for her pain. then her mother interjected and asked the patient to clarify. Potentially the T3 made her itch. I attempted to explain that many pain meds can cause her to itch. I also attempted to explain that many patients do not need pain meds/ narcotics after a vaginal delivery and if she needed such that we needed to do an exam to evaluate her pain for possible other causes. They immediately began refuting me despite my attempts to explain the medications with them. Finally I said that I needed to return to Labor and Delivery and that I would return to do an exam when she finished her dinner since she did not appear to be in significant Discomfort at this time. Her mother then requested to speak with me. I asked the patient if she gives permission to speak with her mother and she was upset by this saying that it wasn't necessary for me to ask permission. I informed the family that it is a violation to speak to anyone other than the patient about her care unless permission is given. Her mother and I and (Cayden Mar her RN) went into an adjoining room to speak. At which time the patient's mother began to be upset and stating that she was getting my name and everyone's name to complain. I stated that there was no need to be upset that we were trying to help her daughter but that an exam needed to be done. Before I could finish my sentence she stated that she wasn't upset that I was just thinking that because she is . I then explained that The Nursing groundskeeper supervisor will be called as race is inappropriate to bring in to the discussion of her daughters medical care. At this time she stated she would be taping me and other in the future. I explained to her that this is illegal and that I do not give my permission to be video taped by her or anyone else. The Nursing supervisior came and had a discussion with the patient. In the meantime I spoke with Dr. Boyle who came in to do the exam on the patient since I felt it was ill advised that I continue with interactions with this family member. Dr. Boyle did an exam which was normal - no e/o vaginal hematoma or erythema and intact laceration repair. He and the patient and Shaylee Haskins (pts RN)spoke with the patient about what she wanted for pain medication. The patient desired Motrin/Benadryl and T3 at this time. Approximately 5-10 minutes after this the patient now desires to be discharged. When explained that she and the baby would not be discharged at this time (she only delivered this morning) she was informed that she could leave AMA but discharge is not going to be recommended at this time. She then reported that she instead wanted to be transferred to [facility] and [facility] had accepted her care. Nursing groundskeeper supervisor was then notified to see patient again and inform her re: her options. Discharge is not an option for the patient or her mother at this time. Patient also informed the RN that she wanted her narcotics/pain meds before she left. Patient has decided to stay in the hospital for this time. (2) Vaginal delivery Is this a current diagnosis for this admission?: Yes Plan:: Called the Nursing groundskeeper supervisor and combat control manager for Maternal Child services. - Time Spent with Patient Time with patient: 15-25 minutes Medications reviewed and adjusted accordingly: Yes - Disposition Anticipated Discharge: Home Within: within 48 hours
[2018-06-14] MEDS: DIPHENHYDRAMINE HCL 25 MG CAPSULE PO PRN (22:20)
[2018-06-15] MEDS: IBUPROFEN 800 MG TABLET PO SCH ×4 (06:13→21:44)
[2018-06-15 07:19] LABS: HEMATOCRIT 34.8 % (36.0-47.0); HEMOGLOBIN 11.5 g/dL (12.0-15.5); MEAN CORPUSCULAR HEMOGLOBIN 27.4 pg (27.0-33.4); MEAN CORPUSCULAR VOLUME 83 fl (80-97); PLATELET COUNT 160 10^3/uL (150-450); RED BLOOD COUNT 4.21 10^6/uL (3.72-5.28); RED CELL DISTRIBUTION WIDTH 15.7 % (11.5-14.0); WHITE BLOOD COUNT 12.3 10^3/uL (4.0-10.5)
[2018-06-15] MEDS: SENNOSIDES/DOCUSATE 8.6-50 MG 1 EACH TABLET PO SCH (09:15)
[2018-06-15] MEDS: FERROUS SULFATE 325 MG TABLET PO SCH ×2 (09:15→17:06)
[2018-06-15] MEDS: FAMOTIDINE 20 MG TABLET PO SCH ×2 (09:15→21:38)
[2018-06-15] MEDS: DOCUSATE SODIUM 100 MG CAPSULE PO SCH ×2 (09:15→17:06)
[2018-06-15] MEDS: PRENATAL VITAMIN W DHA CAPSULE PO SCH (09:16)
--- NOTE | 2018-06-15 09:33 | PDOC PROGRESS REPORT ---
Subjective-OB Progress Note for:: 06/15/18 Subjective: Discussed discharge today, states she is not ready to go home, back hurting and she feels like she is bleeding too much, unsure how often she is changing a pad , eating bkf, OOB in halls, voiding Physical Exam (OB) Vital Signs: Temp Pulse Resp BP Pulse Ox 99.1 F 99 18 121/66 99 06/14/18 09:46 06/14/18 09:46 06/14/18 09:46 06/14/18 09:46 06/14/18 09:46 Intake & Output 06/14/18 06/15/18 06/16/18 06:59 06:59 06:59 Intake Total 3000 427 Balance 3000 427 Weight 112.4 kg - PIH/Pre-Eclampsia DTR's: 1 + Clonus: Negative Headache: Absent Epigastric Pain: No Visual Changes: No - Lochia Lochia Amount: Scant < 10 ml Lochia Color: Rubra/Red - Abdomen Description: Soft Hernia Present: No Fundal Description: Firm Fundal Height: u/u - u/2 Objective-Diagnostic Laboratory: 06/15/18 06:49 06/15/18 06:49 WBC 12.3 H RBC 4.21 Hgb 11.5 L Hct 34.8 L MCV 83 MCH 27.4 MCHC 33.0 RDW 15.7 H Plt Count 160 Assessment and Plan(PN) - Assessment and Plan (1) Obstetrical laceration, second degree Is this a current diagnosis for this admission?: Yes (2) Vaginal delivery Is this a current diagnosis for this admission?: Yes - Time Spent with Patient Medications reviewed and adjusted accordingly: Yes - Disposition Anticipated Discharge: Home Within: within 24 hours
[2018-06-15] MEDS: DIPHENHYDRAMINE HCL 25 MG CAPSULE PO PRN ×2 (10:23→21:44)
[2018-06-16] MEDS: IBUPROFEN 800 MG TABLET PO SCH (06:30)
[2018-06-16 06:49] LABS: HEMATOCRIT 34.6 % (36.0-47.0); HEMOGLOBIN 11.7 g/dL (12.0-15.5); MEAN CORPUSCULAR HEMOGLOBIN 27.9 pg (27.0-33.4); MEAN CORPUSCULAR HGB CONC 33.8 g/dL (32.0-36.0); MEAN CORPUSCULAR VOLUME 82 fl (80-97); PLATELET COUNT 179 10^3/uL (150-450); RED CELL DISTRIBUTION WIDTH 16.1 % (11.5-14.0)
[2018-06-16 08:16] VITALS: BP 132/80
--- NOTE | 2018-06-16 08:33 | PDOC PROGRESS REPORT ---
Subjective-OB Progress Note for:: 06/16/18 Subjective: Holding baby, ready to go home, needs to go back to [place], bottle feeding, wearing bra, eating well, voiding, scant bleeding Physical Exam (OB) Vital Signs: Temp Pulse Resp BP Pulse Ox 98.5 F 86 18 132/80 H 99 06/16/18 08:12 06/16/18 08:12 06/16/18 08:12 06/16/18 08:00 06/16/18 08:12 Intake & Output 06/15/18 06/16/18 06/17/18 06:59 06:59 06:59 Intake Total 427 Balance 427 - PIH/Pre-Eclampsia DTR's: 1 + Clonus: Negative Headache: Absent Epigastric Pain: No Visual Changes: No - Lochia Lochia Amount: Small 10-25 ml Lochia Color: Rubra/Red - Abdomen Description: Soft, Round Hernia Present: No Fundal Description: Firm, Midline Fundal Height: u/u - u/2 Objective-Diagnostic Laboratory: 06/16/18 06:30 06/16/18 06:30 WBC 9.0 RBC 4.20 Hgb 11.7 L Hct 34.6 L MCV 82 MCH 27.9 MCHC 33.8 RDW 16.1 H Plt Count 179 Assessment and Plan(PN) - Assessment and Plan (1) Obstetrical laceration, second degree Is this a current diagnosis for this admission?: Yes (2) Vaginal delivery Is this a current diagnosis for this admission?: Yes - Time Spent with Patient Time with patient: Less than 15 minutes Medications reviewed and adjusted accordingly: Yes - Disposition Anticipated Discharge: Home Within: Other - home today
--- NOTE | 2018-06-16 08:37 | PDOC DISCHARGE SUMMARY ---
Final Diagnosis Discharge Date: 06/16/18 - Final Diagnosis (1) Obstetrical laceration, second degree Is this a current diagnosis for this admission?: Yes (2) Vaginal delivery Is this a current diagnosis for this admission?: Yes Discharge Data - Discharge Medication Prescriptions: Ibuprofen [Motrin 800 mg Tablet] 800 mg PO Q8 #30 tablet Home Medications: Ibuprofen [Motrin 800 mg Tablet] 800 mg PO Q8 #30 tablet 06/16/18 Gestational Age: 41 Reason(s) for Admission: Onset of Labor, PROM Procedures: Ultrasound Intrapartum Procedure(s): Spontaneous Vaginal Delivery Complication(s): Laceration-Vaginal, Laceration-Perineal Laceration-Degree: 2nd - [place] Data Baby 1 Female at 1 minute: 7 at 5 minutes: 8 Weight: 3.033 kg Home with Mother: Yes Complications: No - Diagnosis Test Laboratory: Temp Pulse Resp BP Pulse Ox 98.5 F 86 18 132/80 H 99 06/16/18 08:12 06/16/18 08:12 06/16/18 08:12 06/16/18 08:00 06/16/18 08:12 06/13/18 06/13/18 06/15/18 14:35 15:55 06:49 RBC 4.35 4.21 Hgb 12.1 11.5 L Hct 36.0 34.8 L Urine Opiates Screen NEGATIVE 06/16/18 06:30 RBC 4.20 Hgb 11.7 L Hct 34.6 L Urine Opiates Screen - Discharge information/Instructions Discharge Activity: Activity As Tolerated, No Lifting Over 10 Pounds, No Lifting /Push/Pulling, Pelvic Rest Discharge Diet: As Tolerated, Regular Disposition: HOME, SELF-CARE Follow up with: [facility] in: 4, Weeks - F/U with OB in [place]
[2018-06-16] MEDS: SENNOSIDES/DOCUSATE 8.6-50 MG 1 EACH TABLET PO SCH (09:03)
[2018-06-16] MEDS: FERROUS SULFATE 325 MG TABLET PO SCH (09:03)
[2018-06-16] MEDS: FAMOTIDINE 20 MG TABLET PO SCH (09:03)
[2018-06-16] MEDS: PRENATAL VITAMIN W DHA CAPSULE PO SCH (09:03)
[2018-06-16] MEDS: DOCUSATE SODIUM 100 MG CAPSULE PO SCH (09:03)
== END 2018-06-16 11:15 | disposition home or self-care (01) | DRG 775 ==
LOC: LC 14:26 → LR 15:45 → EEVIPCON 15:45 → 2S 06-14 09:45
PROVIDERS: ADMIT Obstetrics & Gynecology; ATTEND Obstetrics & Gynecology
PROC: 10E0XZZ Delivery of Products of Conception, External Approach (ICD-10-PCS; principal; 2018-06-14)
PROC: 4A1HXCZ Monitoring of Products of Conception, Cardiac Rate, External Approach (ICD-10-PCS; 2018-06-14)
DX: O48.0 Post-term pregnancy (principal); O70.1 Second degree perineal laceration during delivery; O76 Abnormality in fetal heart rate and rhythm complicating labor and delivery; Z37.0 Single live birth; Z3A.41 41 weeks gestation of pregnancy
CPT/HCPCS: 36415; 80307; 81005; 85025; 85027; 86592; 86850; 86900; 86901; J2300; J2370; J2550; J2590; J3010; J3490

== ENCOUNTER 2020-11-28 19:22 | Inpatient (IN) | payer MEDICAID ==
[2020-11-28] MEDS ORDERED: RINGERS SOLUTION,LACTATED 1,000 ML IV ONE (20:14)
--- NOTE | 2020-11-28 20:14 | Admission Physical ---
Datetime Report Generated by CPN: 11/28/2020 20:13 CURRENT ADMISSION Chief Complaint: Uterine Contractions; Suspected Ruptured Membranes Admit Impression : Term, Intrauterine Admit Plan: Admit to Unit; Initiate Section Protocol ALLERGIES Medication Allergies: No Known Allergies (06/09/2018) PHYSICAL EXAM General: Normal HEENT: Normal Neurologic: Normal Thyroid: Normal Heart: Normal Lungs: Normal Breast: Normal Back: Normal Abdomen: Normal Genitourinary Exam: Normal Extremities: Normal DTRs: Normal Pelvic Type: Adequate Vital Signs: Reviewed; Within Normal Limits VAGINAL EXAM Dilatation: 2 Effacement: 70 Station: -2 Contraction Comments: no regular contracions MEMBRANES Pooling: Positive Membranes: Ruptured FETUS A Monitoring: External US FHR- Baseline: 160 Variability: Moderate 6-25bpm Accelerations: 10X10 Decelerations: None FHR Category: Category III Presentation: Compound Admit Comment: 25 yo at 38 wks EGA with SROM and presenting part-ARM -Admit to LDR -NPO and IVFs: LR at 125 cc/hr after 1 liter bolus -CEFM and toco -Abdominal prep -SCDs -Ancef 2 gms prior to OR -Plan for Primary section d/t arm presentation INFORMED CONSENT Informed Consent Obtained: Section Delivery; Dilatation and Curretage Signature: with User ID: Kemal : with User ID: [email or web address]
[2020-11-28] MEDS ORDERED: CEFAZOLIN SODIUM 2 GM in DEXTROSE 5%-WATER 50 ML IV PRN (20:17)
[2020-11-28] MEDS ORDERED: CEFAZOLIN 2 GM/D5W RTU 2 GM/50 ML RTUPB IV PRN (20:23)
[2020-11-28] MEDS ORDERED: CITRIC ACID/SODIUM CITRATE ORAL SOLN 15 ML UDCUP ONE (20:33)
[2020-11-28] MEDS ORDERED: METHYLERGONOVINE MALEATE INJ/PF 0.2 MG/1 ML AMPULE ONE (20:34)
[2020-11-28] MEDS ORDERED: CEFAZOLIN 2 GM/D5W RTU 2 GM/50 ML RTUPB IV ONE (20:34)
[2020-11-28] MEDS ORDERED: MISOPROSTOL 0.2 MG TABLET ONE (20:34)
[2020-11-28] MEDS ORDERED: OXYTOCIN 10 UNIT/ML VIAL ONE (20:38)
[2020-11-28] MEDS ORDERED: FENTANYL CITRATE INJ/PF 100 MCG/2 ML AMPUL ONE ×2 (20:38→23:40)
[2020-11-28] MEDS ORDERED: EPHEDRINE SULFATE INJ 50 MG/1 ML AMPULE ONE (20:38)
[2020-11-28] MEDS ORDERED: KETOROLAC TROMETHAMINE INJ/PF 30 MG/1 ML SDV ONE (20:38)
[2020-11-28] MEDS ORDERED: MIDAZOLAM 2 MG/2 ML INJ ONE (20:38)
[2020-11-28] MEDS ORDERED: PHENYLEPHRINE HCL INJ/PF 10 MG/1 ML SDV ONE (20:39)
[2020-11-28] MEDS ORDERED: MORPHINE SULFATE 10 MG/ML INJ ONE (20:39)
[2020-11-28] MEDS ORDERED: ONDANSETRON HCL INJ/PF 4 MG/2 ML SDV ONE (20:39)
[2020-11-28] MEDS ORDERED: DEXAMETHASONE SOD PHOSPHATE INJ 4 MG/1 ML VIAL ONE (20:39)
[2020-11-28] MEDS ORDERED: ACETAMINOPHEN 1,000 MG/100 ML RTUPB IV ONE (20:39)
[2020-11-28 20:55] LABS: ABSOLUTE LYMPHOCYTES (AUTO) 1.4 10^3/uL (0.5-4.7); ABSOLUTE MONOCYTES (AUTO) 0.5 10^3/uL (0.1-1.4); ABSOLUTE NEUT (AUTO) 4.7 10^3/uL (1.7-8.2); BASOPHILS % (AUTO) 0.4 % (0-2); EOSINOPHILS % (AUTO) 0.1 % (0-6); HEMATOCRIT 34.7 % (36.0-47.0); HEMOGLOBIN 11.5 g/dL (12.0-15.5); LYMPHOCYTES % (AUTO) 20.6 % (13-45); MEAN CORPUSCULAR HEMOGLOBIN 26.3 pg (27.0-33.4); MEAN CORPUSCULAR HGB CONC 33.3 g/dL (32.0-36.0); MEAN CORPUSCULAR VOLUME 79 fl (80-97); MONOCYTES % (AUTO) 7.3 % (3-13); PLATELET COUNT 152 10^3/uL (150-450); RED BLOOD COUNT 4.39 10^6/uL (3.72-5.28); RED CELL DISTRIBUTION WIDTH 15.4 % (11.5-14.0); SEGMENTED NEUTROPHILS % (AUTO) 71.6 % (42-78); TOTAL CELLS COUNTED % (AUTO) 100 %; WHITE BLOOD COUNT 6.6 10^3/uL (4.0-10.5)
[2020-11-28 21:58] LABS: APPEARANCE,URINE SLIGHTLY-CLOUDY; BILIRUBIN,URINE NEGATIVE (NEGATIVE); COLOR,URINE YELLOW; GLUCOSE, URINE NEGATIVE (NEGATIVE); KETONES,URINE NEGATIVE (NEGATIVE); LEUKOCYTE ESTERASE,URINE TRACE (NEGATIVE); NITRITE,URINE NEGATIVE (NEGATIVE); PROTEIN,URINE 100 mg/dL (NEGATIVE); URINE SPECIFIC GRAVITY 1.029
[2020-11-28 22:14] LABS: URINE AMPHETAMINES SCREEN NEGATIVE; URINE BARBITURATES SCREEN NEGATIVE; URINE BENZODIAZEPINES SCREEN NEGATIVE; URINE COCAINE SCREEN NEGATIVE; URINE MARIJUANA (THC) SCREEN NEGATIVE; URINE METHADONE SCREEN NEGATIVE; URINE PHENCYCLIDINE SCREEN NEGATIVE
[2020-11-28] MEDS ORDERED: ONDANSETRON HCL INJ/PF 4 MG/2 ML SDV IV PRN (22:24)
[2020-11-28] MEDS ORDERED: DIPHENHYDRAMINE HCL 50 MG/ML VIAL IV PRN (22:24)
[2020-11-28] MEDS ORDERED: OXYCODONE-ACETAMINOPHEN 5-325 MG TABLET PO PRN ×3 (22:24→22:37)
[2020-11-28] MEDS ORDERED: MEPERIDINE HCL/PF INJ 25 MG/1 ML DISP.SYRIN IV PRN (22:24)
[2020-11-28] MEDS ORDERED: PROMETHAZINE HCL INJ 25 MG/1 ML VIAL IV PRN ×3 (22:24→22:37)
[2020-11-28] MEDS ORDERED: MORPHINE SULFATE 10 MG/ML INJ IV PRN (22:24)
[2020-11-28] MEDS ORDERED: FENTANYL CITRATE INJ/PF 100 MCG/2 ML AMPUL IV PRN ×2 (22:24)
[2020-11-28] MEDS ORDERED: SIMETHICONE 80 MG TAB.CHEW PO PRN (22:37)
[2020-11-28] MEDS ORDERED: HYDROMORPHONE HCL INJ/PF 2 MG/ML AMPULE IV PRN (22:37)
[2020-11-28] MEDS ORDERED: DIPH/PERTUSS(ACELL)/TETANUS VAC/PF 0.5 ML SYR (>=10YO) IM PRN (22:37)
[2020-11-28] MEDS ORDERED: OXYTOCIN/0.9 % SODIUM CHLORIDE 30 UNIT/500 ML RTUINJ IV PRN (22:37)
[2020-11-28] MEDS ORDERED: RINGERS SOLUTION,LACTATED 1,000 ML IV PRN (22:37)
[2020-11-28] MEDS ORDERED: MEASLES,MUMPS&RUBELLA VACC/PF 0.5 ML VIAL SUBCUT PRN (22:37)
[2020-11-28] MEDS ORDERED: ACETAMINOPHEN 325 MG TABLET PO PRN (22:37)
--- NOTE | 2020-11-28 22:57 | Operative Report ---
Operative Report DATE OF SURGERY: 11/28/20 PREOPERATIVE DIAGNOSIS: Intrauterine at 38 wks per patient report of gestational age. Rupture of membranes, clear fluid. Malpresentation - arm POSTOPERATIVE DIAGNOSIS: Same as above OPERATION: Primary section SURGEON: TIM CARPENTER ANESTHESIA: Spinal TISSUE REMOVED OR ALTERED: Placenta COMPLICATIONS: None ESTIMATED BLOOD LOSS: 750cc INTRAOPERATIVE FINDINGS: Normal appearing uterus, bilateral fallopian tubes and ovaries. Presenting part was left leg on hysterotomy. Delievered in complete breech presentation. No fluid noted. Apgars 7/8 at one and five minutes respectfully PROCEDURE: IV fluids: per anesthesia record Urinary output: 300 cc clear yellow urine Findings: Normal-appearing uterus, bilateral ovaries and fallopian tubes were negative. Placenta grossly normal. Position: To recovery room in stable condition Description of procedure: The patient was taken to the operating room and spinal anesthesia was administered and found to be adequate. She was then placed on the OR table in the supine position with a slight leftward tilt. Patient was prepped and draped in usual sterile fashion. Ancef 2 gms was given IV prior to the procedure for infection prophylaxis. Timeout was taken. A Pfannenstiel skin incision was then made approximately 3 cm above the pubic symphysis and carried down to level the rectus fascia. The rectus fascia was then nicked in the midline with a scalpel and the fascial incision was extended laterally with use of curved Salmon scissors. The rectus fascia was then grasped with 2 Kocker clamps elevated and the underlying rectus muscle was dissected off both bluntly and sharply. Any bleeding controlled with cautery. The rectus muscles were then split in the midline and the peritoneum was entered. The peritoneal incision was then extended by manually stretching the peritoneum. The bladder blade was positioned. The bladder was noted to be out of harm's way. A scalpel was then used in the lower uterine for the hysterotomy, slowly-lower uterine segment was thick and minimal to no fluid was noted. A blunt finger was used to enter the uterus once thinned with scapel. The uterine incision was then manually stretched. The was noted to be in complete breech. Left leg was delivered and then the hips were brought to the hysterotomy incision and delivered. Back delivered to the level of the scapula. The legs were then flexed at the knee and reduced. THe chest was turned side to side allowing delivery of each arm. The chest was elevated toward maternal head and the head then delivered with some difficulty. The cord was cut clamped and the was handed off to the nurse awaiting. The placenta was manually delivered. Using a lap gauze the uterus was cleared of all clots and debris. The pratibha retractor was then placed and a bladder blade was repositioned. The uterine incision was then closed with 0 Chromic suture in a running locked fashion. A second layer of the same suture was used in a running locked imbricated fashion. The uterine incision was inspected and noted to be hemostatic. The posterior aspect of the uterus was then inspected and anatomy was seen as above. Warm saline was used to remove any clot or debris. The uterus remained firm and the pratibha retractor was removed. Warm saline irrigation was used to clear all clots and debris from the abdomen. The uterine incision was inspected once more and noted to remain hemostatic. The bladder blade was removed and the peritoneum was closed with 2-0 chromic in a running fashion. The rectus muscles were then reapproximated and the rectus fascia was closed with a #0 looped PDS in a running fashion. The subcutaneous tissue was then inspected and any bleeding was controlled with Bovie electrocautery. The subcutaneous tissue was then closed with 2-0 Plain Gut suture in a running fash ion. The skin was then closed with 3-0 Monocryl in a running subcuticular fashion. The skin incision was then clean dried and Dermabond was applied over the skin incision. All instrument sponge and needle counts were correct x3 for the procedure the patient tolerated the procedure well. She will proceed to recovery room in stable condition
[2020-11-28 23:27] LABS: CHLAM PCR NOT DETECTED (NOT DETECT)
[2020-11-28] MEDS: FENTANYL CITRATE INJ/PF 100 MCG/2 ML AMPUL IV PRN (23:42)
--- NOTE | 2020-11-28 23:50 | Birth Certificate Data ---
Cert Data Datetime Report Generated by CPN: 11/28/2020 23:50 CERTIFICATE DATA Delivery Provider: Preethi Cuenca MD (11/28/2020 20:32:Anita Marvin RN) 48a. Number of Prev Live Births: 1 (11/28/2020 20:32:Anita Marvin RN) 48b. Now Livin (11/28/2020 20:32:Anita Marvin RN) 48c. Live Births Now : 0 (11/28/2020 20:32:QS system process) 48d. Date of Last Live : 06/14/2018 00:00 (11/28/2020 20:32:Anita Marvin RN) 48e. Losses: 0 (11/28/2020 20:32:Anita Marvin RN) RISK FACTORS IN THIS 49a. Diabetes: No (11/28/2020 20:32:Anita Marvin RN) 49b. Hypertension: No (11/28/2020 20:32:Anita Marvin RN) 49c. Previous Births: 0 (11/28/2020 20:32:Anita Marvin RN) 49d. Stillborns: No (11/28/2020 20:32:Anita Marvin RN) 49d. IUGR: No (11/28/2020 20:32:Anita Marvin RN) 49e. Infertility Treatment: No (11/28/2020 20:32:Anita Marvin RN) 49f. Previous Cesareans: 0 (11/28/2020 20:32:Anita Marvin RN) Mother's Height 50b. Height Inches: 67 (11/28/2020 20:14:QS system process) Mother's Weight 51a. Pre- Weight (lbs): 235 (11/28/2020 20:32:Anita Marvin RN) 51b. Weight at Delivery (lbs): 271 (11/28/2020 20:14:QS system process) Infections Present/Treated 53a. Gonorrhea: No (11/28/2020 20:32:Anita Marvin RN) 53b. Syphilis: No (11/28/2020 20:32:Anita Marvin RN) 53c. Chlamydia: No (11/28/2020 20:32:Anita Marvin RN) 53d. Hepatitis B: No (11/28/2020 20:32:Anita Marvin RN) Results this Hospital Visit: Negative (11/28/2020 20:32:Anita Marvin RN) 53h. Mother Tested for HBsAG: Yes (11/28/2020 20:32:Anita Marvin RN) 53j. Test Result: Negative (11/28/2020 20:Caro:Anita Marvin RN) Obstetric Procedures 54a, b, c. Obstetric Procedures: Ultrasound; NST (11/28/2020 20:32:Anita Marvin RN) Cigarette Smoking Cigarette Smoking: Never Smoker. [id number] (11/28/2020 20:32:Anita Marvin RN) 55a. 3 Months Before Preg - Ci (11/28/2020 20:32:Anita Marvin RN) 55b. 1st Trimester of Preg- Ci (11/28/2020 20:32:Anita Marvin RN) 55c. 2nd Trimester of Preg- Ci (11/28/2020 20:32:Anita Marvin RN) 55d. 3rd Trimester of Preg- Ci (11/28/2020 20:32:Anita Marvin RN) Onset of Labor 56a. PROM >12 Hrs: 3.73 (11/28/2020 20:32:QS system process) 57a. Induction of Labor: N/A (11/28/2020 20:32:Anita Marvin RN) 57d. Steroids - Lung Mat: None (11/28/2020 20:32:Anita Marvin RN) 57d. Steroids - Lung Mat: Not Applicable (11/28/2020 20:32:Anita Marvin RN) 57e. Antibiotics During Labor: 11/28/2020 20:38 (11/28/2020 20:32:Anita Marvin RN) 57g. Moderate/Heavy Meconium: Clear (11/28/2020 20:32:Anita Marvin RN) 57h. Intolerance of Labor: Transverse/Complex Presentation (11/28/2020 20:32:Anita Marvin RN) : ARM PRESENTING (11/28/2020 20:32:Anita Marvin RN) 57i. Epidural/Spinal Anesthesia: None (11/28/2020 20:32:Anita Marvin RN) Method of Delivery 58a. Forceps - Unsuccessful A: N/A (11/28/2020 20:32:Anita Marvin RN) 58b. Vacuum - Unsuccessful A: N/A (11/28/2020 20:32:Anita Marvin RN) 58c. Presentation at 58c. Presentation at - A : N/A (11/28/2020 20:32:Anita Marvin RN) 58c. Presentation at - A : Compound ARM PRESENTING (11/28/2020 20:32:Anita Marvin RN) Final Route and Method of Del 58d. Baby A Route/Delivery: (11/28/2020 20:32:Anita Marvin RN) 58e. Trial of Labor Attempted: No (11/28/2020 20:32:Anita Marvin RN) 58e. Trial of Labor Attempted A: N/A (11/28/2020 20:32:Anita Marvin RN) 58e. Trial of Labor Attempted B: N/A (11/28/2020 20:32:Anita Marvin RN) Maternal Morbidity 59b. 3rd or 4th Degree Lacs: None (11/28/2020 20:32:Anita Marvin RN) Birthweight Baby A: 2730 (11/28/2020 20:32:Anita Marvin RN) 60a. Pounds : 6 (11/28/2020 20:32:QS system process) 60b. Ounces: 0 (11/28/2020 20:32:QS system process) 61. GA at Delivery Baby A: 38.3 (11/28/2020 20:32:Anita Marvin RN) : Early Term- 37- 38.6 Weeks (11/28/2020 20:32:QS system process) 62a. 5 Minute Baby A: 8 (11/28/2020 20:32:QS system process)
--- NOTE | 2020-11-28 23:50 | Delivery Summary ---
Del Sum A-C Datetime Report Generated by CPN: 11/28/2020 23:50 DELIVERY PERSONNEL DELIVERY PERSONNEL: [id number] Delivery Doctor:: Preethi Cuenca MD STOCK COUNTER:: Birttany Oliver CRNA Labor and Delivery Nurse:: Anita Marvin RN Ct Scan Special Procedures Technologist:: Anita Marvin RN Neonatal Nurse Practitioner:: ENEDINA Mayer Nursery Nurse:: Meri Garcia RN Nursery Nurse:: ANCA MARVIN Piece Goods Clerk/SOLID WASTE TRUCK DRIVER: Yazmin Hernández CST Piece Goods Clerk/SOLID WASTE TRUCK DRIVER: Mike Felipe CST Additional Personnel: : Subha Berman RN MATERNAL INFORMATION Delivery Anesthesia: Spinal Medications After Delivery: Pitocin 30 Units in 500ml NS/D5W Delivery QBL: 185 Maternal Complications: None Provider Comments: See operative report for detail LABOR SUMMARY EDC: 12/09/2020 00:00 No. Babies in Womb: 1 Attempted: No Labor Anesthesia: None LABOR INFORMATION Reason for Induction: Not Applicable Oxytocin: N/A Group B Beta Strep: unknown Antibiotics # of Doses: 1 Antibiotics Time of Last Dose: 11/28/2020 20:38 Name of Antibiotic Given: ANCEF 2 GRAMS Steroids Given: None Reason Steroids Not Administered: Not Applicable MEMBRANES Membranes Rupture Method: Spontaneous Rupture of Membranes: 11/28/2020 18:00 Length of Rupture (hr): 3.73 Amniotic Fluid Color: Clear Amniotic Fluid Amount: Large Amniotic Fluid Odor: Normal STAGES OF LABOR Stage 3 hr: 0 Stage 3 min: 1 VAGINAL DELIVERY Episiotomy: None Laceration #1: None Laceration Extension #1: N/A CSECTION DELIVERY Primary Indication: Transverse/Complex Presentation Other Primary Indication: ARM PRESENTING CSection Urgency: Non-Scheduled CSection Incidence: Primary Labor: Labor Elective: Nonelective CSection Incision: Lower Uterine Transverse BABY A INFORMATION Delivery Date/Time: 11/28/2020 21:44 Method of Delivery: Nurse Controlled Delivery: No Born in Route : No : N/A Forceps: N/A Vacuum Extraction: N/A Shoulder Dystocia : No PRESENTATION/POSITION BABY A Presentation: Compound ARM PRESENTING Breech Presentation: N/A PLACENTA INFORMATION BABY A Placenta Delivery Time : 11/28/2020 21:45 Placenta Method of Delivery: Manual Removal Placenta Status: Delivered SCORES BABY A Heart Rate 1 min: >100 bpm Resp Effort 1 min: Good Cry Reflex Irritability 1 min: Cough or Sneeze or Pulls Away Muscle Tone 1 min: Flaccid Color 1 min: Body [place], Extremities Blue SCORE 1 MIN: 7 Heart Rate 5 min: >100 bpm Resp Effort 5 min: Good Cry Reflex Irritability 5 min: Cough or Sneeze or Pulls Away Muscle Tone 5 min: Some Flexion of Extremities Color 5 min: Body [place], Extremities Blue Resuscitation Effort 5 min: Tactile Stimulation SCORE 5 MIN: 8 INFORMATION BABY A Gestational Age at Delivery: 38.3 Gestational Status: Early Term- 37- 38.6 Weeks Outcome : Liveborn Condition : Stable Infant Sex: Female IDENTIFICATION BABY A Verification Date/Time: 11/28/2020 22:14 ID Band Number: [id number] Mother's Name Verified: Yes Infant RN Verifying : Bee Echevarria, RN/ SCheco Nicole RN WEIGHT/LENGTH BABY A Birthweight (gm): 2730 Infant Weight (lb): 6 Weight (oz): 0 Length (in): 19.50 Infant Length (cm): 49.53 CORD INFORMATION BABY A No. Cord Vessels: 3 Nuchal Cord : N/A Cord Blood Taken: Yes-For Eval (Mom's Blood Type - or O+) Suction: Mouth; Nose ASSESSMENT BABY A Complications: Extended Tachycardia; Multiple Variable Decels Physical Findings at Delivery: Within Normal Limits Respirations: Appears Normal Skin to Skin: Yes Skin to Skin Time (min): 30 Parking Lot Laborer/ALS Called : No Infant Care By: LIMITED RADIOLOGY TECHNICIANPepe CURTIS AND ANCA GARCIA Transferred To: [facility] BABY B INFORMATION : N/A SIGNATURES Signature: with User ID: Kemal : with User ID: Kemal
--- NOTE | 2020-11-28 23:50 | Warning Signs in Babies ---
VOD Warning Signs Datetime Report Generated by [facility]: 11/28/2020 23:50 VOD#608 -Warning Signs in Babies: Needs to be viewed. (11/28/2020 20:32:Anita Marvin RN)
[2020-11-29] MEDS ORDERED: FENTANYL CITRATE INJ/PF 100 MCG/2 ML AMPUL ONE (00:18)
[2020-11-29] MEDS: FENTANYL CITRATE INJ/PF 100 MCG/2 ML AMPUL IV PRN (00:19)
[2020-11-29] MEDS: KETOROLAC TROMETHAMINE INJ/PF 30 MG/1 ML SDV IV SCH ×3 (00:23→15:00)
[2020-11-29] MEDS: RINGERS SOLUTION,LACTATED 1,000 ML IV PRN ×2 (02:35→03:37)
[2020-11-29] MEDS: IBUPROFEN 800 MG TABLET PO SCH ×3 (06:12→21:24)
[2020-11-29 07:31] LABS: HEMATOCRIT 26.4 % (36.0-47.0); MEAN CORPUSCULAR HEMOGLOBIN 26.6 pg (27.0-33.4); MEAN CORPUSCULAR HGB CONC 33.5 g/dL (32.0-36.0); MEAN CORPUSCULAR VOLUME 79 fl (80-97); PLATELET COUNT 145 10^3/uL (150-450); RED BLOOD COUNT 3.33 10^6/uL (3.72-5.28); RED CELL DISTRIBUTION WIDTH 15.4 % (11.5-14.0); WHITE BLOOD COUNT 10.8 10^3/uL (4.0-10.5)
[2020-11-29 07:33] LABS: HEMOGLOBIN 8.9 g/dL (12.0-15.5)
[2020-11-29] MEDS: PRENATAL VITAMIN W DHA CAPSULE PO SCH (10:25)
[2020-11-29] MEDS: DOCUSATE SODIUM 100 MG CAPSULE PO SCH ×2 (10:25→17:02)
[2020-11-29] MEDS: OXYCODONE-ACETAMINOPHEN 5-325 MG TABLET PO PRN ×3 (10:26→23:50)
--- NOTE | 2020-11-29 13:39 | PDOC PROGRESS REPORT ---
Subjective-OB Progress Note for:: 11/29/20 Subjective: reports bleeding slowing, pain controlled with current meds. + passing gas Physical Exam (OB) Vital Signs: Temp Pulse Resp BP Pulse Ox 98.3 F 96 18 100/56 L 99 11/29/20 11:37 11/29/20 11:30 11/29/20 11:37 11/29/20 11:30 11/29/20 11:37 Intake & Output 11/28/20 11/29/20 11/30/20 06:59 06:59 06:59 Intake Total 1633 200 Output Total 400 500 Balance 1233 -300 Weight 122.5 kg - Dressing Removed: No Incision: Dressing, Well Approximated Closure Type: opsite - Maternal Morbidity 59. Maternal Morbidity (serious complications experinced by the mother associated with labor and delivery: None of the above - Lochia Lochia Amount: Scant < 10 ml Lochia Color: Rubra/Red - Abdomen Description: Tender, Soft Hernia Present: No Fundal Description: Firm, Midline Fundal Height: u/u - u/2 - Abdominal Distension: No distension - Extremities Lower extremities: Kelly's sign - neg Calf: Normal, Nontender Objective-Diagnostic Laboratory: 11/29/20 06:47 11/28/20 11/28/20 11/28/20 19:32 20:33 20:33 WBC 6.6 RBC 4.39 Hgb 11.5 L Hct 34.7 L MCV 79 L MCH 26.3 L MCHC 33.3 RDW 15.4 H Plt Count 152 Seg Neutrophils % 71.6 Urine Color YELLOW Urine Appearance SLIGHTLY-CLOUDY Urine pH 7.0 Ur Specific [place] 1.029 Urine Protein 100 H Urine Glucose (UA) NEGATIVE Urine Ketones NEGATIVE Urine Blood NEGATIVE Urine Nitrite NEGATIVE Ur Leukocyte Esterase TRACE H Blood Type O POSITIVE Antibody Screen NEGATIVE 11/29/20 06:47 WBC 10.8 H RBC 3.33 L Hgb 8.9 L D Hct 26.4 L MCV 79 L MCH 26.6 L MCHC 33.5 RDW 15.4 H Plt Count 145 L Seg Neutrophils % Urine Color Urine Appearance Urine pH Ur Specific [place] Urine Protein Urine Glucose (UA) Urine Ketones Urine Blood Urine Nitrite Ur Leukocyte Esterase Blood Type Antibody Screen Assessment and Plan(PN) - Time Spent with Patient Time with patient: Less than 15 minutes Medications reviewed and adjusted accordingly: Yes - Disposition Anticipated Discharge Disposition: Home, Self Care Anticipated Discharge Timeframe: within 48 hours
[2020-11-30] MEDS: IBUPROFEN 800 MG TABLET PO SCH ×3 (05:04→22:53)
[2020-11-30] MEDS ORDERED: IRON SUCROSE COMPLEX INJ/PF 100 MG/5 ML SDV IV ONE (09:30)
--- NOTE | 2020-11-30 09:57 | PDOC DISCHARGE SUMMARY ---
Impression - Admit/DC Date/PCP Admission Date/Primary Care Provider: 11/28/20 19:38 SHARLA GARCIA DO Discharge Date: 11/30/20 - POD #2, pt doing well, UOB, voiding, Desires to go home today if she can. Baby must stay 48 hours. Pt had PNC in [place], pt to f/up there for PP check. Primary d/t hand presentation - Discharge Diagnosis (1) Malpresentation of fetus Is this a current diagnosis for this admission?: Yes (2) Normal course Is this a current diagnosis for this admission?: Yes (3) S/P primary low transverse Is this a current diagnosis for this admission?: Yes (4) SROM (spontaneous rupture of membranes) Is this a current diagnosis for this admission?: Yes - Additional Information Resuscitation Status: Full Code Discharge Diet: As Tolerated, Regular Discharge Activity: Activity As Tolerated, No Driving, No Lifting Over 10 Pounds, Pelvic Rest Referrals: SHARLA GARCIA DO [Primary Care Provider] - Prescriptions: Ibuprofen [Motrin 800 mg Tablet] 800 mg PO Q8 #60 tablet Oxycodone HCl/Acetaminophen [Percocet 5-325 mg Tablet] 1 tab PO Q4HP PRN #30 tablet PRN Reason: Pain Scale Of 4 Home Medications: Ibuprofen [Motrin 800 mg Tablet] 800 mg PO Q8 #60 tablet 11/30/20 Oxycodone HCl/Acetaminophen [Percocet 5-325 mg Tablet] 1 tab PO Q4HP PRN #30 tablet 11/30/20 Vit/Dha [ Multi + Dha Capsule] 1 cap PO DAILY capsule 11/30/20 HPI Reason(s) for Admission: Onset of Labor Intrapartum Procedure(s): : Low Cervical, Transverse Hospital Course 59. Maternal Morbidity (serious complications experinced by the mother associated with labor and delivery: None of the above Results Laboratory Results: WBC 10.8 10^3/uL (4.0-10.5) H 11/29/20 06:47 RBC 3.33 10^6/uL (3.72-5.28) L 11/29/20 06:47 Hgb 8.9 g/dL (12.0-15.5) L D 11/29/20 06:47 Hct 26.4 % (36.0-47.0) L 11/29/20 06:47 MCV 79 fl (80-97) L 11/29/20 06:47 MCH 26.6 pg (27.0-33.4) L 11/29/20 06:47 MCHC 33.5 g/dL (32.0-36.0) 11/29/20 06:47 RDW 15.4 % (11.5-14.0) H 11/29/20 06:47 Plt Count 145 10^3/uL (150-450) L 11/29/20 06:47 Lymph % (Auto) 20.6 % (13-45) 11/28/20 20:33 [place] % (Auto) 7.3 % (3-13) 11/28/20 20:33 Eos % (Auto) 0.1 % (0-6) 11/28/20 20:33 Baso % (Auto) 0.4 % (0-2) 11/28/20 20:33 Absolute Neuts (auto) 4.7 10^3/uL (1.7-8.2) 11/28/20 20:33 Absolute Lymphs (auto) 1.4 10^3/uL (0.5-4.7) 11/28/20 20:33 Absolute Monos (auto) 0.5 10^3/uL (0.1-1.4) 11/28/20 20:33 Absolute Eos (auto) 0.0 10^3/uL (0.0-0.6) 11/28/20 20:33 Absolute Basos (auto) 0.0 10^3/uL (0.0-0.2) 11/28/20 20:33 Seg Neutrophils % 71.6 % (42-78) 11/28/20 20:33 Urine Color YELLOW 11/28/20 19:32 Urine Appearance SLIGHTLY-CLOUDY 11/28/20 19:32 Urine pH 7.0 (5.0-9.0) 11/28/20 19:32 Ur Specific [place] 1.029 11/28/20 19:32 Urine Protein 100 mg/dL (NEGATIVE) H 11/28/20 19:32 Urine Glucose (UA) NEGATIVE mg/dL (NEGATIVE) 11/28/20 19:32 Urine Ketones NEGATIVE mg/dL (NEGATIVE) 11/28/20 19:32 Urine Blood NEGATIVE (NEGATIVE) 11/28/20 19:32 Urine Nitrite NEGATIVE (NEGATIVE) 11/28/20 19:32 Urine Bilirubin NEGATIVE (NEGATIVE) 11/28/20 19:32 Urine Urobilinogen 2.0 mg/dL (<2.0) H 11/28/20 19:32 Ur Leukocyte Esterase TRACE (NEGATIVE) H 11/28/20 19:32 Urine Ascorbic Acid NEGATIVE (NEGATIVE) 11/28/20 19:32 Urine Opiates Screen NEGATIVE 11/28/20 19:32 Urine Methadone Screen NEGATIVE 11/28/20 19:32 Ur Barbiturates Screen NEGATIVE 11/28/20 19:32 Ur Phencyclidine Scrn NEGATIVE 11/28/20 19:32 Ur Amphetamines Screen NEGATIVE 11/28/20 19:32 U Benzodiazepines Scrn NEGATIVE 11/28/20 19:32 Urine Cocaine Screen NEGATIVE 11/28/20 19:32 U Marijuana (THC) Screen NEGATIVE 11/28/20 19:32 RPR NONREACTIVE (NONREACTIVE) 11/28/20 20:33 Chlamydia DNA (PCR) NOT DETECTED (NOT DETECT) 11/28/20 19:32 N.gonorrhoeae DNA (PCR) NOT DETECTED (NOT DETECT) 11/28/20 19:32 Blood Type O POSITIVE 11/28/20 20:33 Antibody Screen NEGATIVE 11/28/20 20:33 Plan Plan of Treatment: d/c home. f/up for incision check in one week at Ob office, then 4-6 wks for PP check Time Spent: Less than 30 Minutes
[2020-11-30] MEDS: PRENATAL VITAMIN W DHA CAPSULE PO SCH (10:29)
[2020-11-30] MEDS: DOCUSATE SODIUM 100 MG CAPSULE PO SCH ×2 (10:29→18:45)
[2020-11-30] MEDS: OXYCODONE-ACETAMINOPHEN 5-325 MG TABLET PO PRN ×2 (11:34→18:47)
[2020-11-30 21:18] VITALS: BP 102/84
[2020-11-30] MEDS ORDERED: INFLUENZA QUAD (6MOS+) 2020-21 VAC 0.5 ML SYR IM ONE (22:45)
[2020-12-01] MEDS ORDERED: INFLUENZA QUAD (6MOS+) 2020-21 VAC 0.5 ML SYR IM ONE (08:00)
== END 2020-11-30 22:33 | disposition home or self-care (01) | DRG 788 ==
LOC: LC 19:22 → LR 19:38 → 2N 11-29 00:53
PROVIDERS: ADMIT Obstetrics & Gynecology; ATTEND Obstetrics & Gynecology
PROC: 10D00Z1 Extraction of Products of Conception, Low, Open Approach (ICD-10-PCS; principal; 2020-11-28)
DX: O32.2XX0 Maternal care for transverse and oblique lie, not applicable or unspecified (principal); O76 Abnormality in fetal heart rate and rhythm complicating labor and delivery; Z3A.38 38 weeks gestation of pregnancy; Z37.0 Single live birth
CPT/HCPCS: 1961; 36415; 80307; 81005; 85025; 85027; 86592; 86850; 86900; 86901; 87491; 87591; 90715; 94760; 94799; J0131; J0690; J1100; J1885; J2210; J2250; J2270; J2370; J2405; J2590; J3010; J3490; J7120